=== PATIENT | female | born 1970 | race Caucasian/White ===

== ENCOUNTER 2021-03-19 16:41 | Emergency (ER) | payer OTHER, SELFPAY ==
[2021-03-19 16:42] VITALS: BP 109/62; PULSE 80; RESP 15; TEMP 36.5; O2SAT 98; BMI 23.7
--- NOTE | 2021-03-19 17:22 | US_ITS ---
INDICATION: undefined -- PAIN LEFT LEG EXAMINATION: US Venous Duplex LE Unilat / Limited TECHNIQUE: Dotson scale, pulse wave, and color flow Doppler imaging was performed of the lower extremity venous system. The left greater saphenous, common femoral, femoral, and popliteal veins as well as the right common femoral vein were interrogated. COMPARISON: None. FINDINGS: There is normal compression, augmentation, and signal throughout the visualized deep lower extremity veins. No mass or fluid collection. US/Venous Duplex Imag/Limited/Uni IMPRESSION: No sonographic evidence of deep venous thrombosis. Electronically Signed: Song Hanson MD at 18:11 EDT Tel , Service support ,
--- NOTE | 2021-03-19 17:57 | ED.VISSUMM ---
- ER Visit Summary Date of Service: 03/19/21 Chief Complaint: Left knee pain History of Present Illness: The patient is a [address] Moody. Patient reports that over the past 2 weeks she has noticed pain in the posterior aspect of her left knee. States it is an aching pain is 5-10 at worst and 3-10 currently. Is worsened by bending her knee or walking. It is relieved by rest. She denies any trauma. No fall, MVA, or change in activity. She has never had anything like this before. Physical Examination: Vitals: Stable. Afebrile. General: Well-nourished and well-developed. Head: Normocephalic atraumatic. Neck: Supple, no lymphadenopathy. No JVD. Nontender. Cardiovascular: Regular rate and rhythm. No murmurs. Respiratory: No respiratory distress. Clear to auscultation bilaterally. Abdominal: Soft, nontender, nondistended, normal bowel sounds. No guarding, rebound, or peritoneal signs. Back: Nontender. Extremities: Moderate tenderness to palpation in the left popliteal fossa. She has no pain or ligamentous instability with anterior/posterior drawer or medial/lateral stress. There is no overlying erythema or warmth to suggest a septic joint. She has a 2+ dorsalis pedis pulse, no edema. Skin: Normal color, no rash. Neurologic: Alert and oriented ?3. Cranial nerves II through XII are intact. Normal strength and sensation. Psych: Normal affect. Test Results: Left lower extremity Doppler is negative. No DVT or Hunt's cyst. Emergency Department Course and Treatment: Patient refused pain medications. She is resting comfortably. Treatment Plan: Patient did not want an x-ray obtained. She will be discharged with instructions to follow-up with her primary care physician or Dr. Machado in 1 week if not improving. Return to the emergency department for any worsening symptoms. Disposition: To home in improved and stable condition. Impression: 1. Left knee pain, uncertain cause. This note was generated with [employer] dictation software. It may contain incorrect words, spelling, and punctuation that were not noted in review of the chart prior to signing ED Disposition - Plan for ED Patient: Disposition: Home or Assisted Living Instructions: ED Knee Pain of Uncertain Cause Referrals: Nico Moody, [Primary Care Provider] - 1 Week if not improving Delmar Machado DO [STAFF PHYSICIAN] - 1-2 Weeks
== END 2021-03-19 18:11 | disposition home or self-care (01) ==
LOC: ED 18:03
PROVIDERS: Emergency Provider Emergency Medicine; PCP Student in an Organized Health Care Education/Training Program
DX: M25.562 Pain in left knee (principal); M79.605 Pain in left leg
CPT/HCPCS: 93971; 99283

== ENCOUNTER → 2022-01-07 08:54 | Outpatient (CLI) | payer OTHER, SELFPAY ==
--- NOTE | 2022-01-07 09:01 | RAD_ITS ---
STUDY: AIR-CONTRAST UPPER GI SERIES WITH SMALL BOWEL FOLLOW-THROUGH EXAMINATION. REASON FOR EXAM: Female, 51 years old. UPPER ABD PAIN FLUOROSCOPY TIME (if supplied): ( 78 seconds ) minutes/seconds. 27 images were obtained. TECHNIQUE: The patient ingested barium. Multiple images of the esophagus, stomach and duodenum were obtained. Following this, a small bowel follow-through examination was obtained. COMPARISON: None. FINDINGS: The esophagus is unremarkable. There is no evidence of obstruction. No evidence of gastroesophageal reflux. The stomach and duodenum are unremarkable. No ulceration is seen. A small bowel follow-through examination was then performed. No evidence of intrinsic or extrinsic small bowel disease. The terminal ileum is unremarkable. RAD/Upper GI/w Small Bowel IMPRESSION: Unremarkable air contrast upper GI series and small bowel follow-through examination. Electronically Signed: Jan Slade MD at 15:28 EST ,
== END ==
PROVIDERS: PCP Student in an Organized Health Care Education/Training Program
DX: R14.0 Abdominal distension (gaseous) (principal); K56.1 Intussusception; R10.10 Upper abdominal pain, unspecified; Z90.49 Acquired absence of other specified parts of digestive tract; Z90.710 Acquired absence of both cervix and uterus
CPT/HCPCS: 74246; 74248

== ENCOUNTER 2022-01-28 07:55 | Outpatient (CLI) | payer OTHER, SELFPAY ==
--- NOTE | 2022-01-28 07:57 | RAD_ITS ---
STUDY: ACUTE ABDOMINAL SERIES REASON FOR EXAM: Female, 51 years old. Abdominal pain and distention RADIATION DOSAGE (If Supplied By Facility): CTDIvol = ( ) mGy, DLP = ( ) mGycm. Individualized dose optimization techniques were used for this CT.? FLUOROSCOPY TIME (if supplied): ( ) minutes/seconds TECHNIQUE: 4 AP views of the abdomen COMPARISON: None. FINDINGS: Bowel gas pattern suggests small bowel ileus likely due to retained stool in the colon. No demonstrated free air or within the biliary tree. There are calcifications overlying the left renal shadow. There is a lucent center phlebolith within the pelvis. Bony structures are unremarkable RAD/Colonic Trans GI/w Mul Image IMPRESSION: Small bowel ileus likely due to retained stool Likely left nephrolithiasis Electronically Signed: Ernie Gonsalez MD at 16:22 EST ,
== END 2022-01-28 23:59 | disposition home or self-care (01) ==
PROVIDERS: PCP Student in an Organized Health Care Education/Training Program; Referring Provider Surgery; Visit Provider Surgery
DX: R10.9 Unspecified abdominal pain (principal); R14.0 Abdominal distension (gaseous); K59.00 Constipation, unspecified
CPT/HCPCS: 74248; 74250

== ENCOUNTER 2022-02-01 06:04 | Outpatient (CLI) | payer OTHER, SELFPAY | END 2022-02-01 23:59 | disposition home or self-care (01) | LOC: LAB 06:06 | PROVIDERS: PCP Student in an Organized Health Care Education/Training Program; Referring Provider Surgery; Visit Provider Surgery | DX: Z00.00 Encounter for general adult medical examination without abnormal findings (principal) ==

== ENCOUNTER → 2022-04-23 | Outpatient (CLI) | payer OTHER, SELFPAY ==
[2022-04-23 15:08] LABS: Lyme Ab Screen Interpretation REF LAB
[2022-04-23 16:59] LABS: Erythrocyte Sedimentation Rate 6 mm/hr (0-30)
[2022-04-23 17:24] LABS: CPK Total, Creatine Kinase 109 U/L (26-192); CRP < 2.90 mg/L (0.0-3.0); LDH 85 U/L (84-246)
[2022-04-25 14:10] LABS: Anti-Centromere B Ab <0.2 AI (0.0-0.9); Anti-Chromatin <0.2 AI (0.0-0.9); Anti-Jo <0.2 AI (0.0-0.9); Anti-Scleroderma-70 AB <0.2 AI (0.0-0.9); RNP Ab <0.2 AI (0.0-0.9); SJOGREN'S Anti-SS-A test < 0.2 AI (0.0-0.9); SJOGREN'S Anti-SS-B test < 0.2 AI (0.0-0.9); Smith Ab <0.2 AI (0.0-0.9)
[2022-04-25 17:07] LABS: Endomysial Antibody IgA Negative (Negative)
[2022-04-26 08:27] LABS: Anti-dsDNA Ab 1 IU/mL (0-9)
[2022-04-26 08:43] LABS: Immunoglobulin A 309 mg/dL (87-352); t-Transglutaminase IgA <2 U/mL (0-3)
[2022-05-01 02:07] LABS: Alpha-1-Globulins 0.2 g/dL (0.0-0.4); Alpha-2-Globulins 0.7 g/dL (0.4-1.0); Cytoplasmic Ab (C-ANCA) <1:20 titer (Neg:<1:20); Immunoglobulin A 307 mg/dL (87-352); Immunoglobulin G 903 mg/dL (586-1602); Immunoglobulin M 75 mg/dL (26-217)
[2022-05-01 20:57] LABS: Immunoglobulin E 10 IU/mL (6-495); Lyme Scn Total Ab w/Rflx Negative (Negative); Perinuclear Ab (P-ANCA) <1:20 titer (Neg:<1:20)
== END | disposition home or self-care (01) ==
LOC: LAB 14:56
PROVIDERS: PCP Student in an Organized Health Care Education/Training Program; Visit Provider Internal Medicine Gastroenterology
DX: R10.12 Left upper quadrant pain (principal)
CPT/HCPCS: 36415; 82550; 82784; 82785; 83516; 83615; 84165; 85652; 86140; 86225; 86235; 86255; 86256; 86334; 86618

== ENCOUNTER → 2022-07-15 | Outpatient (CLI) | payer OTHER, SELFPAY ==
[2022-07-18 09:33] LABS: Calprotectin, Stool <16 ug/g (0-120)
[2022-07-19 18:12] LABS: Pancreatic Elastase, Fecal 346 (>200)
== END | disposition home or self-care (01) ==
PROVIDERS: PCP Student in an Organized Health Care Education/Training Program; Referring Provider Internal Medicine Gastroenterology; Visit Provider Internal Medicine Gastroenterology
DX: R10.9 Unspecified abdominal pain (principal); K92.89 Other specified diseases of the digestive system
CPT/HCPCS: 82653; 83630; 83993; 87177; 87209

== ENCOUNTER → 2022-08-05 | Outpatient (CLI) | payer OTHER, SELFPAY ==
--- NOTE | 2022-08-05 07:19 | CT_ITS ---
STUDY: CT ABDOMEN AND PELVIS WITH CONTRAST REASON FOR EXAM: Female, 51 years old. Enterography. 2 years of upper abdominal fullness. History of intussusception. RADIATION DOSAGE (If Supplied By Facility): CTDIvol = ( 18.53 ) mGy, DLP = ( 1722.59 ) mGycm TECHNIQUE: Transaxial images were obtained from the dome of the diaphragm to the symphysis pubis without oral contrast. Oral and amp; IV Breeza Neutral and amp; 100mL Isovue-370 was administered. Sagittal and coronal images were reconstructed. Individualized dose optimization techniques were used for this CT. COMPARISON: None. FINDINGS: The visualized lung bases are unremarkable. The visualized portions of the heart are within normal limits. There is decreased attenuation of the liver consistent with steatosis. The patient is status post cholecystectomy. Normal spleen. Normal pancreas. Normal bilateral adrenal glands. Normal right kidney. Normal left kidney. Normal visualized stomach. Normal small intestine. Surgical clips are seen in the region of the cecum. Sigmoid diverticulosis. There is non-visualization of the appendix. Normal abdominal aorta. Normal inferior vena cava. Normal retroperitoneum. Normal urinary bladder. There is absence of the uterus consistent with a prior hysterectomy. Normal abdominal wall. There are degenerative changes of the visualized lumbar spine. CT/Abdomen/Pelvis WITH Contrast IMPRESSION: Status post anastomosis at the level of the cecum. Fatty infiltration of the liver. No acute abnormality is seen. Electronically Signed: Jan Slade MD at 13:12 EDT ,
== END | disposition home or self-care (01) ==
PROVIDERS: PCP Student in an Organized Health Care Education/Training Program; Referring Provider Internal Medicine Gastroenterology; Visit Provider Internal Medicine Gastroenterology
DX: R10.12 Left upper quadrant pain (principal); Z90.49 Acquired absence of other specified parts of digestive tract
CPT/HCPCS: 74177; Q9967; A4216

== ENCOUNTER → 2022-08-26 | Outpatient (CLI) | payer OTHER, SELFPAY ==
--- NOTE | 2022-08-26 09:18 | US_ITS ---
STUDY: ABDOMINAL ULTRASOUND - ELASTOGRAPHY REASON FOR VISIT: Female, 51 years old. Fatty infiltration of the liver. TECHNIQUE: Liver stiffness measurements were obtained on a [employer] RS 85 ultrasound machine using a CA 1-7 probe following the SRU guidelines. 3 measurements were obtained using a 2-D-SWE method. The IQR/M was 13% suggesting a quality data set. TECHNICAL QUALITY: Adequate. COMPARISON: Comparison is made with prior study done earlier today. FINDINGS: Liver: Fatty infiltration of the liver. Median liver stiffness measured 11 kPa. US/Elastography Parenchyma/Organ IMPRESSION: Liver stiffness measures 11 kPa compatible with F2-F3 (Mild to moderate liver fibrosis) Metavir score. Electronically Signed: Jan Slade MD at 14:25 EDT ,
--- NOTE | 2022-08-26 09:18 | US_ITS ---
STUDY: ABDOMINAL ULTRASOUND - RIGHT UPPER QUADRANT REASON FOR VISIT: Female, 51 years old Fatty Liver TECHNIQUE: Ultrasound evaluation of the right upper quadrant was performed with real-time and static li-scale imaging. TECHNICAL QUALITY: Adequate. COMPARISON: Comparison is made with prior CT scan of the abdomen and pelvis dated 08/05/2022. FINDINGS: Liver: The liver measures 14.9 cm. There is increased echogenicity consistent with fatty infiltration. The bile ducts are within normal limits. There is hepatic color flow. The direction of portal flow is hepatopetal. There is no demonstrated mass lesion. Gallbladder: The patient is status post cholecystectomy. Common Bile Duct (C.B.D.): The common bile duct measures 3.8 mm. Pancreas: Normal size of the head, body and tail of the pancreas. There is increased echogenicity of the pancreas. There is no demonstrated pancreatic mass or cyst. Right Kidney: Normal size of the right kidney. The right kidney measures 10.5 cm x 5.1 cm x 3.5 cm. Normal renal cortex. The right cortex measures 1.0 cm. There is no demonstrated renal mass or cyst. There is no right hydronephrosis. US/Abdomen Limited IMPRESSION: Fatty infiltration of the liver. Status post cholecystectomy. Electronically Signed: Jan Slade MD at 14:15 EDT ,
[2022-08-26 10:06] LABS: Erythrocyte Sedimentation Rate 7 mm/hr (0-30)
[2022-08-26 10:13] LABS: Hemoglobin A1c 5.6 % (3.8-5.6)
[2022-08-26 10:34] LABS: CRP < 2.90 mg/L (0.0-3.0); Ferritin 95 ng/mL (8-252)
[2022-08-29 12:47] LABS: Anti-Mitochondrial AB <20.0 Units (0.0-20.0); Anti-Smooth Muscle ABS 4 Units (0-19)
== END | disposition home or self-care (01) ==
PROVIDERS: PCP Student in an Organized Health Care Education/Training Program; Referring Provider Internal Medicine Gastroenterology; Visit Provider Internal Medicine Gastroenterology
DX: K76.0 Fatty (change of) liver, not elsewhere classified (principal); Z90.49 Acquired absence of other specified parts of digestive tract
CPT/HCPCS: 36415; 76705; 76981; 82728; 83036; 83516; 85652; 86140

== ENCOUNTER → 2022-10-11 | Outpatient (CLI) | payer OTHER, SELFPAY ==
[2022-10-11 12:12] LABS: International Normalized Ratio 0.9
== END | disposition home or self-care (01) ==
LOC: LABSPEC 11:43
PROVIDERS: PCP Student in an Organized Health Care Education/Training Program
DX: K76.0 Fatty (change of) liver, not elsewhere classified (principal)
CPT/HCPCS: 85610

== ENCOUNTER 2024-03-25 09:55 | Emergency (ER) | payer OTHER, SELFPAY ==
[2024-03-25 09:55] VITALS: BP 110/66; PULSE 103; RESP 16; TEMP 36.1; O2SAT 98; BMI 25.5
--- NOTE | 2024-03-25 10:53 | EKG12_ITS ---
Test Reason : OTHER Blood Pressure : / mmHG Vent. Rate : 096 BPM Atrial Rate : 096 BPM P-R Int : 160 ms QRS Dur : 070 ms QT Int : 320 ms P-R-T Axes : 047 046 046 degrees QTc Int : 404 ms Normal sinus rhythm Normal ECG Confirmed by ROMERO OLIVEIRA, JACOB ([id number]), features editor BELLA CORTES ([id number]) on 03/26/2024 10:27:27 AM Referred By: Confirmed By:JACOB JASSO MD
--- NOTE | 2024-03-25 11:12 | EDS_ITS ---
HPI History of Present Illness Chief Complaint: Bite Informant: patient Narrative Narrative: Patient presents secondary to body aches. She noted a bull's-eye-like rash on her back yesterday and was seen in urgent care. Although she does not know the tick bite, she does work on a farm and goes hiking frequently. They started her on doxycycline and she has completed 2 doses. Today she complains of generalized body aches and skin sensitivity. She was concerned that she might need IV antibiotics. [facility] Medical History Herniated lumbar intervertebral disc History of ovarian cancer History of uterine cancer Hypothyroidism Home Medications estradiol 0.01% (0.1 mg/gram) vaginal cream 1 g vaginal QWEEK 01/28/22 [History Last Taken Unknown] levothyroxine 100 mcg capsule 100 mcg PO DAILY 01/28/22 [History Last Taken Unknown] doxycycline hyclate 100 mg capsule 100 mg PO BID #60 caps 01/28/23 [Rx Last Taken Unknown] prednisone 10 mg tablet 10 mg PO DAILY #21 tabs 08/28/23 [Rx Last Taken Unknown] oouazt-qgryvjbz-kdjtqxh 40,000-126,000-168,000 unit capsule, delay rel (Zenpep) 2 cap PO TID #320 caps 11/19/23 [Rx Last Taken Unknown] Xifaxan 550 mg tablet (rifaximin) 550 mg PO TID #180 tabs 03/05/24 [Rx Last Taken Unknown] Allergy/AdvReac Type Severity Reaction Status Date / Time Sulfa (Sulfonamide Allergy Severe throat Verified 03/25/24 09:56 Antibiotics) Swelling/ hives medroxyprogesterone AdvReac Upset Verified 03/25/24 09:56 [From Provera] Stomach Surgical History History of appendectomy History of arthroplasty of left shoulder History of cholecystectomy History of colonoscopy (~2020) History of esophagogastroduodenoscopy (EGD) (~2020) History of right hip hemiarthroplasty History of total hysterectomy Social History Smoking Status: Never smoker ROS ROS ED Constitutional Constitutional ED: Denies chills or fever(s) Eyes Eyes: Denies discharge from eye(s) ENT ENT ED: Denies discharge from eye(s), rhinorrhea or sore throat Cardiovascular Cardiovascular: Denies chest pain or palpitations Respiratory/Chest Respiratory/Chest: Denies cough or dyspnea Gastrointestinal Gastrointestinal: Denies abdominal pain, nausea or vomiting Genitourinary Genitourinary ED: Denies difficulty urinating or dysuria Musculoskeletal Musculoskeletal: Reports myalgias; Denies back pain or extremity pain Integumentary Reports rash; Denies Abrasions Neurologic Neurologic: Denies headache(s) or weakness Psychiatric Psychiatric: Denies anxiety or depression Allergic/Immunologic Allergic/Immunologic ED: Denies lip swelling or urticaria EXAM Physical Exam Const Vital Signs: 03/25/24 09:55 Temperature 97 F L Temperature Source Temporal Pulse Rate 103 H Respiratory Rate 16 Blood Pressure 110/66 Blood Pressure Mean 80 Pulse Ox 98 Oxygen Delivery Method Room Air Positive well nourished and well developed General Appearance ED: well developed HEENT Reports moist mucous membranes Eyes EOMs intact bilaterally Chest Wall inspection of chest normal and palpation of chest normal Resp normal respiratory effort and clear to auscultation bilaterally Cardio regular rate and regular rhythm Back/Spine Back/Spine Narrative: There is a round erythematous lesion noted to the left flank area measuring 11 cm in diameter. Does have a slight bull's-eye appearance. No central fluctuance or evidence of an abscess. Extremity normal to inspection Neuro oriented x3 and no sensory deficits noted Motor Exam: strength 5/5 throughout Psych mental status grossly normal Skin no rashes or lesions noted MDM MDM MDM Narrative Medical decision making narrative: Patient states that they did send Lyme titers yesterday and results are pending. I advised her that typically IV antibiotics are reserved for those with definite neuro findings or cardiac findings. EKG will be obtained to evaluate. EKG Initial EKG: Attestation: I personally reviewed and interpreted this EKG as follows: Interpretation: Sinus Rhythm (Sinus at 96 with no acute ischemia. QTc is 404. NC intervals 160.) Treatment and Re-Evaluation :: EKG is unremarkable at this time. I do not feel patient needs IV antibiotics. She will continue her doxycycline. We did discuss that even if she has a cellulitic type reaction, doxycycline is an appropriate antibiotic for that. She will follow-up with her doctor for her Lyme titers. Return instructions given. Discharge Plan Triage Chief Complaint: Bite Other Complaint: Itching ED Provider: Ana Paula Keita Dx/Rx/DC Orders Clinical Impression: Lyme disease Instructions: ED Lyme Disease Prescriptions: No Action levothyroxine 100 mcg capsule 100 mcg PO DAILY estradiol 0.01 % (0.1 mg/gram) cream 1 g vaginal QWEEK Zenpep 40,000-126,000- 168,000 unit capsule,delayed release(DR/EC) 2 cap PO TID Qty: 320 3RF doxycycline hyclate 100 mg capsule 100 mg PO BID Qty: 60 1RF prednisone 10 mg tablet 10 mg PO DAILY Qty: 21 0RF Rx Instructions: 10 mg every day for 2 weeks and then take 5 mg for 2 weeks Xifaxan 550 mg tablet 550 mg PO TID Qty: 180 0RF Primary Care Provider: Nico Moody Referrals: Nico Moody DO [Primary Care Provider] - 1-2 Weeks Disposition Disposition: Home, Self Care
[2024-03-25 11:32] VITALS: BP 106/74; PULSE 74; RESP 14; TEMP 36.1; O2SAT 98
== END 2024-03-25 11:33 | disposition home or self-care (01) ==
PROVIDERS: Emergency Provider Emergency Medicine; PCP Student in an Organized Health Care Education/Training Program; Visit Provider Emergency Medicine
DX: A69.20 Lyme disease, unspecified (principal); E03.9 Hypothyroidism, unspecified; Z79.890 Hormone replacement therapy; Z79.899 Other long term (current) drug therapy
CPT/HCPCS: 93005; 99284

== ENCOUNTER → 2025-08-01 | Outpatient (CLI) | payer OTHER, SELFPAY ==
--- NOTE | 2025-08-01 07:44 | CT_ITS ---
PROCEDURE: LIMITED CHEST CT CARDIAC ONLY 08/01/2025 REASON FOR EXAM: CAD SCREENING. Paternal history of coronary artery disease. TECHNIQUE: CT performed for coronary artery calcium scoring. One or more dose reduction techniques were used (e.g., Automated exposure control, adjustment of the mA and/or kV according to patient size, use of iterative reconstruction technique). RADIATION DOSE SUMMARY: CTDlvol: 12.19 mGy DLP: 170.66 mGycm COMPARISON: None CT/Limited Chest CT Cardiac Only IMPRESSION: Limited imaging of the lungs demonstrates no acute process. No pleural effusion or pneumothorax is seen in visualized areas. No adenopathy is noted. The visualized upper abdomen demonstrates no significant abnormality. Reading Location: [place] [id number]
--- NOTE | 2025-08-10 19:15 | CA.SCORE ---
Calcium Scoring Date of Study:: 08/01/25 Indications Indications: Coronary artery disease screening Coronary Calcium Scoring: High-resolution Computed Tomographic imaging of the chest was performed on [08/01/2025], with particular attention paid to the coronary arteries. Images from the examination were analyzed for the presence and extent of coronary artery calcification , using coronary calcium quantification software. The patient tolerated the procedure well and there were no complications. The results of the coronary calcification analysis are provided below. Findings Coronary Artery Left Main (LM): 0 Left Anterior Descending (LAD): 0 Left Circumflex (LCX): 0 Right Coronary Artery (RCA): 0 Total Agatston Score: 0 Percentile Rankin% Calcium Scoring Interpretation: Different methods to categorize the overall amount of coronary plaque. Overall amount CAC SIS Visual of coronary plaque P1 Mild -100 <2 1-2 vessels with mild amount of plaque P2 Moderate 101-300 3-4 1-2 vessels with moderate amount, 3 vessels with mild amount of plaque P3 Severe 301-999 5-7 3 vessels with moderate amount, 1 vessel with severe amount of plaque P4 Extensive >1000 >8 2-3 vessels with severe amount of plaque Conclusion: No atherosclerotic plaquing noted
== END | disposition home or self-care (01) ==
LOC: CT 07:44
PROVIDERS: PCP Student in an Organized Health Care Education/Training Program; Referring Provider Student in an Organized Health Care Education/Training Program; Visit Provider Student in an Organized Health Care Education/Training Program
DX: Z13.6 Encounter for screening for cardiovascular disorders (principal); R06.09 Other forms of dyspnea; I51.89 Other ill-defined heart diseases; R00.2 Palpitations
CPT/HCPCS: 75571; 76380

== ENCOUNTER → 2025-11-01 | Outpatient (CLI) | payer OTHER, SELFPAY ==
--- NOTE | 2025-11-01 08:01 | US_ITS ---
PROCEDURE: ABD LIMITED W/ ELASTOGRAPHY REASON FOR EXAM: FATTY LIVER DISEASE COMPARISON: CT of the abdomen and pelvis of 08/05/2022.. TECHNIQUE: Procedure Code: [id number] Modality: US Procedure: ABD LIMITED W/ ELASTOGRAPHY Right upper quadrant abdominal ultrasound. Shear wave elastography for non- invasive assessment of liver tissue stiffness. FINDINGS: LIVER: Size: Unremarkable Length: 14.5 cm Echotexture: Normal Contour: Normal Lesions: Well-circumscribed echogenic lesion in the right liver lobe measuring 5 mm consistent with hemangioma. Elastography: EQI Med: 4.6 kPa EQI Med Anatoly: 1.24 m/s IQR/Med: 7 %* Metavir score F0 F1 GALLBLADDER: Status post cholecystectomy COMMON BILE DUCT: Normal measuring 5 mm. PANCREAS: Normal The right kidney is normal in size and echo architecture. It measures 11 x 5.7 x 3.8 cm. There is no stone or mass. No hydronephrosis identified. US/ABD Limited w/ Elastography IMPRESSION: NO TO MILD HEPATIC FIBROSIS Hepatic steatosis. Cholecystectomy. No biliary ductal dilatation. 5 mm echogenic lesion in the right hepatic lobe likely reflective of small katherin ngioma. Reading Location: [id number]
== END | disposition home or self-care (01) ==
LOC: US 07:55
PROVIDERS: PCP Student in an Organized Health Care Education/Training Program; Referring Provider Internal Medicine Gastroenterology; Visit Provider Internal Medicine Gastroenterology
DX: K76.0 Fatty (change of) liver, not elsewhere classified (principal)
CPT/HCPCS: 76705; 76981